=== PATIENT | male | born 1995 | race Hispanic/Latino ===

== ENCOUNTER 2020-04-27 21:51 | Inpatient (IN) | payer MEDICAID, OTHER ==
[~2020-04-27] VITALS: Ht 167.6 cm; Wt 109.5 kg
[2020-04-27 22:33] LABS: BASOPHILS % (AUTO) 0.5 % (0.0-5.0); EOSINOPHILS % (AUTO) 2.4 % (0.0-8.0); HEMATOCRIT 43.8 % (42-54); LYMPHOCYTES % (AUTO) 34.3 % (21.0-51.0); MEAN CORPUSCULAR HEMOGLOBIN 37.7 pg (27.0-33.0); MEAN CORPUSCULAR HGB CONC 45.7 g/dL (32.0-36.0); MEAN CORPUSCULAR VOLUME 82.6 fL (79-99); MONOCYTES % (AUTO) 6.5 % (3.0-13.0); NEUTROPHILS % (AUTO) 55.9 % (40.0-77.0); PLATELET COUNT (AUTO) 299 K/uL (130-400); WHITE BLOOD COUNT (AUTO) 11.5 K/uL (4.8-10.8)
[2020-04-27] MEDS ORDERED: KETOROLAC TROMETHAMINE 30MG/ML ONE (22:46)
[2020-04-27 23:06] LABS: APPEARANCE,URINE Clear (CLEAR); BILIRUBIN,URINE Negative (NEGATIVE); COLOR,URINE Yellow (YELLOW); GLUCOSE, URINE (UA) >=1000 mg/dL (NEGATIVE); KETONES,URINE Trace mg/dL (NEGATIVE); LEUKOCYTE ESTERASE ,URINE Negative (NEGATIVE); NITRATE,URINE Negative (NEGATIVE); OCCULT BLOOD,URINE Negative (NEGATIVE); PH,URINE 5.5 (5.0-8.0); PROTEIN,URINE POS 1+ mg/dL (NEGATIVE)
[2020-04-27 23:09] LABS: POTASSIUM 3.8 mmol/L (3.5-5.1)
[2020-04-27 23:11] LABS: BILIRUBIN,TOTAL 0.5 mg/dL (0.2-1.0); CREATININE 0.7 mg/dL (0.5-1.5)
[2020-04-27 23:12] LABS: TOTAL PROTEIN, SERUM 6.2 g/dL (6.0-8.3)
[2020-04-27 23:25] LABS: BACTERIA,URINE None Seen /HPF (None Seen); RBC,URINE None Seen /HPF (0-1); SQUAMOUS EPITHELIAL CELL,UR Rare /HPF (0-2); WBC,URINE None Seen /HPF (0-1); YEAST,URINE BUDDING None Seen /HPF (None Seen)
[2020-04-27] MEDS: SODIUM CHLORIDE 0.9% 1000ML 1,000 ML IV SCH (23:56)
[2020-04-28] MEDS ORDERED: ONDANSETRON HCL 4 MG/2 ML VIAL IV PRN
[2020-04-28] MEDS ORDERED: ACETAMINOPHEN 325 MG TAB PO PRN ×2
[2020-04-28] MEDS ORDERED: HYDRALAZINE HCL 20 MG/ML VIAL IV PRN
[2020-04-28] MEDS ORDERED: LACTULOSE 20 GM/30 ML UDCUP PO PRN
[2020-04-28 00:24] LABS: AMPHET/METH SCREEN,URINE NEGATIVE (NEGATIVE); BARBITURATE SCREEN, URINE NEGATIVE (NEGATIVE); BENZODIAZEPINES SCREEN,URINE NEGATIVE (NEGATIVE); CANNABINOID SCREEN,URINE NEGATIVE (NEGATIVE); COCAINE SCREEN,URINE NEGATIVE (NEGATIVE); OPIATE SCREEN,URINE NEGATIVE (NEGATIVE); PHENCYCLIDINE SCREEN,URINE NEGATIVE (NEGATIVE)
[2020-04-28 00:28] LABS: CHOLESTEROL > 600 mg/dL (<200); HDL CHOLESTEROL 43 mg/dL (29-71); TRIGLYCERIDES 8909 mg/dL (30-200)
[2020-04-28 00:53] LABS: LDL DIRECT 74 mg/dL (0-99)
[2020-04-28 03:46] VITALS: BP 143/79
[2020-04-28] MEDS: MORPHINE SULFATE 2 MG/ML 1ML SYG IV PRN ×2 (04:00→09:37)
[2020-04-28 05:52] LABS: BASOPHILS % (AUTO) 0.5 % (0.0-5.0); EOSINOPHILS % (AUTO) 2.4 % (0.0-8.0); HEMATOCRIT 40.9 % (42-54); LYMPHOCYTES % (AUTO) 27.5 % (21.0-51.0); MEAN CORPUSCULAR HEMOGLOBIN 35.6 pg (27.0-33.0); MEAN CORPUSCULAR VOLUME 82.6 fL (79-99); MONOCYTES % (AUTO) 10.1 % (3.0-13.0); NEUTROPHILS % (AUTO) 59.2 % (40.0-77.0); PLATELET COUNT (AUTO) 278 K/uL (130-400); RED BLOOD CELL COUNT(AUTO) 4.95 MIL/uL (4.50-6.20); RED CELL DISTRIBUTION WIDTH 14.2 % (11.0-15.5); WHITE BLOOD COUNT (AUTO) 10.1 K/uL (4.8-10.8)
[2020-04-28] MEDS: INSULIN HUMULIN R 100 UNIT/ML 3ML SQ SCH ×2 (05:57)
[2020-04-28 06:29] LABS: POTASSIUM 3.2 mmol/L (3.5-5.1)
[2020-04-28 06:53] LABS: CREATININE 0.8 mg/dL (0.5-1.5)
[2020-04-28 08:00] VITALS: BP 154/86
[2020-04-28] MEDS: SODIUM CHLORIDE 0.9% 1000ML 1,000 ML IV SCH (08:04)
[2020-04-28] MEDS ORDERED: ENOXAPARIN SODIUM 40 MG/0.4 ML SYRINGE SQ SCH (09:00)
[2020-04-28] MEDS ORDERED: FAMOTIDINE/PF 20 MG/2 ML VIAL IV SCH (09:00)
[2020-04-28] MEDS ORDERED: INSULIN REGULAR, HUMAN 3ML 100 UNIT in SODIUM CHLORIDE 0.9% 99 ML IV PRN ×2 (09:30)
[2020-04-28] MEDS ORDERED: DEXTROSE 5%-LACTATED RINGERS 1,000 ML IV SCH (09:30)
--- NOTE | 2020-04-28 10:05 | NUR ---
AMA PATIENT IS WORRIED ABOUT STAYING IN THE HOSPITAL. HE WANTS TO GO TO [facility] BECAUSE HIS FAMILY IS IN [place]. HE WAS ONLY VISITING [place]RIEND IN [place] WHEN HE FELT A SHARP PAIN IN HIS ABDOMEN AND HE DECIDED TO COME TO THE HOSPITAL. DR CLAUDIA PINO EXPLAINED TO THE PATIENT THAT HE NEEDS AN INSULIN DRIP BECAUSE HIS TRIGLYCERIDES ARE ALMOST 9000 AND HIS GLUCOSE IS ABOVE 400. PATIENT VERBALIZED UNDERSTANDING, I PERSONALLY EXPLAINED TO THE PATIENT THE RISKS AND CONSEQUENCES INVOLVED IN LEAVING THE HOSPITAL AT THIS TIME, THE BENEFITS OF CONTINUED TREATMENT AND HOSPITALIZATION. PATIENT VERBALIZED UNDERSTANDING OF ALL EDUCATION GIVEN VIA TEACH BACK. HE UNDERSTANDS THAT HE MAY IF HE LEAVES THE HOSPITAL. HE CALLED HIS MOTHER TO COME AND PICK HIM UP. AMA FORM SIGNED, PLACES IN THE CHART. SECURITY AWARE. IV DISCONTINUED, CATHETER INTACT.
--- NOTE | 2020-04-28 13:00 | NUR ---
CM ASSESSMENT-- DEFERRED.-- Addendum: 04/28/20 at 1302 by ANICETO GOMES RN CM Amended: Links added.
[2020-04-28] MEDS ORDERED: FENOFIBRATE NANOCRYSTALLIZED 48 MG TAB PO SCH (21:00)
== END 2020-04-28 10:35 | disposition left against medical advice (07) | DRG 440 ==
LOC: EDH 21:51 → EDHIP 21:52 → 3BH 04-28 02:34 → UNDODISIN 04-28 10:35
PROVIDERS: ADMIT Internal Medicine; ATTEND Internal Medicine
DX: K85.90 Acute pancreatitis without necrosis or infection, unspecified (principal); E78.00 Pure hypercholesterolemia, unspecified; K86.1 Other chronic pancreatitis; E78.1 Pure hyperglyceridemia; I10 Essential (primary) hypertension; Z87.891 Personal history of nicotine dependence; R73.9 Hyperglycemia, unspecified
CPT/HCPCS: 36415; 74176; 80048; 80053; 80061; 80305; 81001; 82150; 82330; 82948; 83036; 83690; 85025; G0378; G0480; J1650; J1815; J1885; J3490; J7030

== ENCOUNTER 2022-11-20 02:18 | Emergency (ER) | payer MEDICAID, OTHER ==
[~2022-11-20] VITALS: Ht 167.6 cm; Wt 103.4 kg
[2022-11-21] MEDS ORDERED: METF-444 PO (03:33)
[2022-11-21] MEDS ORDERED: FISH1CAP27 PO (03:33)
[2022-11-21] MEDS ORDERED: METO25TA6 PO (03:33)
[2022-11-25] MEDS ORDERED: PIOG30TA10 PO (13:51)
[2022-11-25] MEDS ORDERED: METF-444 PO (13:51)
[2022-11-25] MEDS ORDERED: ATOR40TA69 PO (13:51)
[2022-11-25] MEDS ORDERED: GLIM4TAB36 PO (13:51)
[2022-11-25] MEDS ORDERED: LOSA50TA2 PO (13:51)
[2022-11-25] MEDS ORDERED: METO50 PO (13:51)
[2022-11-25] MEDS ORDERED: FISH1CAP27 PO (13:51)
[2022-11-25] MEDS ORDERED: FENO145T PO (13:51)
== END 2022-11-20 05:40 | disposition left against medical advice (07) ==
LOC: EDH 02:18
DX: R10.9 Unspecified abdominal pain (principal); R11.0 Nausea; Z53.21 Procedure and treatment not carried out due to patient leaving prior to being seen by health care provider

== ENCOUNTER 2023-01-22 20:25 | Emergency (ER) | payer OTHER ==
[~2023-01-22] VITALS: Ht 167.6 cm; Wt 104.3 kg
[~2023-01-22 20:25] MED LIST: ATOR40TA69 PO; FENO145T PO; FISH1CAP27 PO; GLIM4TAB36 PO; LOSA50TA2 PO; METF-444 PO; METO50 PO; PIOG30TA10 PO
[2023-01-22] MEDS ORDERED: ERYT1OIN7 OP (20:52)
[2023-01-22] MEDS ORDERED: CEPH500B PO (20:52)
[2023-01-22 20:58] VITALS: BP 135/80
== END 2023-01-22 21:17 | disposition home or self-care (01) ==
LOC: EDH 20:25
DX: H01.004 Unspecified blepharitis left upper eyelid (principal); I10 Essential (primary) hypertension; F17.200 Nicotine dependence, unspecified, uncomplicated; Z79.899 Other long term (current) drug therapy; Z79.84 Long term (current) use of oral hypoglycemic drugs

== ENCOUNTER 2024-11-20 23:06 | Emergency (ER) | payer OTHER ==
[~2024-11-20] VITALS: Ht 167.6 cm; Wt 98.4 kg
[~2024-11-20 23:06] MED LIST changes: +ERYT1OIN7 OP; -FISH1CAP27 PO; -GLIM4TAB36 PO; +LOSA-418 PO; -LOSA50TA2 PO; -METF-444 PO; +NPH,100V11 SQ; -PIOG30TA10 PO; +[UNRECOGNIZED DRUG - CODE] MC; +[UNRECOGNIZED DRUG - CODE] MC
[2024-11-21] MEDS ORDERED: CEPH500B PO (00:28)
--- NOTE | 2024-11-21 00:29 | ERN ---
General Chief Complaint: Abscess Stated Complaint: C/O ABSCESS TO GROIN AREA Time Seen by MD: 23:10 Source: patient History of Present Illness Initial Comments PATIENT IS A 29-YEAR-OLD MALE COMING IN TO BE EVALUATED FOR IRRITATION AND TENDERNESS UNDER THE SUPRAPUBIC REGION. HE STATES THAT HE NOTICED A LITTLE BLISTER IN HIS VERY PAINFUL TO TOUCH. NO FEVER OR CHILLS NO NAUSEA NO VOMITING. PATIENT STATES THAT THE LESION BEGAN THREE DAYS AGO. Allergies: Coded Allergies: No Known Allergies (Verified Allergy, Unknown, 04/27/20) Home Meds Active Scripts Blood-Glucose Meter (NeoGuide Systemsuch Glucose Monitoring) 1 Each Kit, EACH for sugar checks, #1 Prov:JAVAD CORNELIUS MD 11/03/23 Syringe and Needle,Insulin,1Ml (Global Sugar Arttouch Insulin Syringe) 28 Gauge X 5/16" Disp.syrin, EACH MC for diabetes, #100 3 Refills Prov:JAAVD CORNELIUS MD 11/03/23 NPH, Human Insulin Isophane (Novolin N) 100 Unit/Ml Vial, 30 UNIT SQ PM for 30 Days, #10 VIAL 3 Refills Prov:JAVAD CORNELIUS MD 11/03/23 NPH, Human Insulin Isophane (Novolin N) 100 Unit/Ml Vial, 50 UNIT SQ AM for 30 Days, #15 VIAL 3 Refills Prov:JAVAD CORNELIUS MD 11/03/23 Metoprolol Tartrate (Lopressor 50Mg Tab) 50 Mg Tab, 50 MG PO BID for HYPERTENSION for 90 Days, #180 TAB 3 Refills Prov:JAVAD CORNELIUS MD 11/03/23 Losartan Potassium (Cozaar) 50 Mg Tablet, 50 MG PO DAILY for HYPERTENSION for 90 Days, #90 TAB 3 Refills Prov:JAVAD CORNELIUS MD 11/03/23 Fenofibrate Nanocrystallized (Tricor) 145 Mg Tablet, 145 MG PO DAILY for HYPERTRIGLYCERIDEMIA for 90 Days, #90 TAB 3 Refills Prov:JAVAD CORNELIUS MD 11/03/23 Atorvastatin Calcium (LIPITOR) 40 Mg Tablet, 40 MG PO HS for DYSLIPIDEMIA for 90 Days, #90 TAB 3 Refills Prov:JAVAD CORNELIUS MD 11/03/23 Erythromycin Base (Erythromycin) 1 Gm Oint...g., 1 GM OP 6 times/day for 7 Days, #30 GM Prov:SHEREEN LOPEZ SUPERVISOR MOLD CONSTRUCTION 01/22/23 Past Medical History Past Medical History: Diabetes-Type II, Hypertension Past Surgical History: None Social History Social History: Smokers, ETOH ROS Dictation CONSTITUTIONAL: NO CHILLS, NO FEVER, NO WEAKNESS, NO DIAPHORESIS, NO MALAISE. HEAD/FACE: NO SIGNS OF TRAUMA. EENT: NO EYE PAIN, NO BLURRED VISION, NO TEARING, NO DOUBLE VISION, NO EAR PAIN, NO EAR DISCHARGE, NO NOSE PAIN, NO NASAL CONGESTION, NO THROAT PAIN, NO THROAT SWELLING, NO MOUTH PAIN. RESPIRATORY: NO COUGH, NO ORTHOPNEA, NO SOB, NO STRIDOR, NO WHEEZING. CARDIOVASCULAR: NO CHEST PAIN, NO EDEMA, NO PALPITATIONS, NO SYNCOPE. GASTROINTESTINAL/ABDOMINAL: NO ABDOMINAL PAIN, NO CONSTIPATION, NO DIARRHEA, NO NAUSEA, NO VOMITING. GENITOURINARY: NO ABNORMAL DISCHARGE, NO DYSURIA, NO FREQUENT URINATION, NO HEMATURIA. NO COMPLAINTS OF PAIN IN THE GENITALS. MUSCULOSKELETAL: NO BACK PAIN, NO GOUT, NO JOINT PAIN, NO JOINT SWELLING, NO MUSCLE PAIN, NO MUSCLE STIFFNESS, NO NECK PAIN. INTEGUMENTARY: NO CHANGE IN COLOR, NO CHANGE IN HAIR/NAILS, NO DRYNESS, NO LESION, NO LUMPS, RASH. NEUROLOGICAL/PSYCH: NO ANXIETY, NOT DEPRESSED, NO EMOTIONAL PROBLEM, NO HEAD ACHE, NO NUMBNESS, NO PRE-EXISTING DEFICIT, NO HISTORY OF SEIZURES, NO TREMORS, NO WEAKNESS. HEMATOLOGIC/LYMPHATIC: NOT ANEMIC, NO HISTORY OF BLOOD CLOTS, NO APPARENT BLEEDING, NO BRUISING, GLANDS NOT SWOLLEN. ALL SYSTEMS NEGATIVE, EXCEPT NOTED. Physical Exam Physical Exam Dictation VITAL SIGNS: REVIEWED. GENERAL APPEARANCE: ALERT, ORIENTED X3, NO ACUTE DISTRESS, OBESE. HEAD AND FACE: NON-TRAUMATIC. EYES: PERRL, PINK CONJUNCTIVAS, EYELID NO TRAUMA, ANTERIOR CHAMBER CLEAR. EARS: PINNAS INTACT AND NO SIGNS OF TRAUMA OR ERYTHEMA. EAR CANALS CLEAR AND NO DISCHARGE. TMS NO ERYTHEMA. NOSE: NO DISCHARGE, NO BLEEDING. OROPHARYNX: MOUTH NORMAL, TEETH NO CARIES, TONGUE PINK. PHARYNX CLEAR, NO ERYTHEMA. TONSILS NO EXUDATES, NO ABSCESSES NOTED. MUCOUS MEMBRANE MOIST. NECK: SUPPLE, NON-TENDER, NO THYROMEGALY, NO MASSES, NO JVD, NO BRUITS. BREAST: DEFERRED. CHEST: NO TENDERNESS, NO CREPITUS, NO PARADOXICAL MOVEMENT, NO RETRACTIONS. LUNGS: CLEAR, WELL-VENTILATED, SYMMETRIC, NO RALES, NO WHEEZING, NO RHONCHI, NO STRIDOR, GOOD BREATH SOUNDS BILATERALLY. HEART: REGULAR RATE, REGULAR RHYTHM, NO MURMUR, NO GALLOPS. VASCULAR: NO PERIPHERAL EDEMA. ABDOMEN: SOFT, POSITIVE BOWEL SOUNDS, NONDISTENDED, NO GUARDING, NONTENDER, NO REBOUND, NO MASSES NO HEPATOMEGALY, NO SPLENOMEGALY, NO MATHEW'S SIGN, NO HERNIAS. RECTAL: DEFERRED. GENITAL: DEFERRED. NEUROLOGICAL: NORMAL SPEECH, GROSS MOTOR FUNCTION INTACT, GROSS SENSORY FUNCTION INTACT. MUSCULOSKELETAL: NECK NONTENDER, FULL RANGE OF MOTION, BACK NONTENDER, FULL RANGE OF MOTION. EXTREMITIES: NONTENDER, FULL RANGE OF MOTION. SKIN: COLOR PINK, DRY, NO TURGOR, RIGHT SUPRAPUBIC FOLLICULITIS, NO LACERATIONS, NO ABRASIONS, NO CONTUSIONS. LYMPHATICS: DEFERRED. Results Laboratory and Microbiology Labs Reviewed?: Yes MDM MDM: DIFFERENTIAL DIAGNOSIS: FOLLICULITIS, SIMPLE ABSCESS, PATIENT IS A 28-YEAR-OLD MALE COMING IN TO BE EVALUATED FOR SUPRAPUBIC TENDERNESS AND STATES THAT HE HAS NOTICED A PIMPLE THREE DAYS AGO. ON PHYSICAL EXAM NO FLUCTUANCE NOTED, FOLLICULITIS NOTED. PATIENT WILL BE DISCHARGED WITH A DIAGNOSIS OF SUPRAPUBIC FOLLICULITIS. ANTIBIOTICS WILL BE PROVIDED SINCE THE PATIENT IS A DIABETIC. I ADVISED HIM CLOSE FOLLOW UP WITH PCP IN ORDER TO MAKE SURE THAT LESIONS HEAL PROPERLY. ED Course Orders Procedure Category Date Status Time Ceftriaxone 1g Vial PHA 11/21/24 Transmitted (Rocephine 1g Inj) 00:30 Vital Signs Date Time Temp Pulse Resp B/P (MAP) Pulse Ox O2 Delivery O2 Flow Rate FiO2 11/20/24 23:08 98.2 84 20 147/90 98 Room Air DX & DISP Disposition: Discharge Departure Impression: Primary Impression: Folliculitis Condition: Stable Scripts Cephalexin Monohydrate (Keflex) 500 Mg Cap 1 CAP PO TID for 10 Days, #30 CAP 0 Refills Prov: VANE HERNANDEZ MD 11/21/24 Additional Instructions: FOLLOW-UP WITH PRIMARY CARE PROVIDER IN 1 TO 2 DAYS. TAKE MEDICATIONS DIRECTED HERE IN THE EMERGENCY ROOM. OKAY TO CONTINUE HOME MEDICATIONS UNLESS OTHERWISE DISCUSSED DURING YOUR VISIT IN THE EMERGENCY ROOM TODAY. RETURN TO YOUR NEAREST EMERGENCY ROOM IF SYMPTOMS WORSEN OR IF THERE IS NO IMPROVEMENT. CALL 911 IF YOU NEED IMMEDIATE ASSISTANCE. TAKE TYLENOL AUGY-EJD-EVQTCSR NEEDED AND IF NO CONTRAINDICATIONS ARE PRESENT. INCREASE ORAL HYDRATION. A WOUND CULTURE OR URINE CULTURE WAS ORDERED HERE IN THE EMERGENCY ROOM DEPARTMENT PLEASE FOLLOW-UP WITH PRIMARY CARE PROVIDER AND ADVISE THEM TO GET REPEAT PORTS FROM OUR FACILITY. IF YOU HAD ANY TIEN WRAP/SPLINTS THAT WERE APPLIED HERE, PLEASE DO NOT REMOVE THEM UNTIL YOU SEE YOUR PRIMARY CARE OR SPECIALTY. REFERRALS: Referrals: SELF,REFERRAL (PCP) SHANE BOSE MD Time of Disposition: 00:28 VANE HERNANDEZ MD Nov 21, 2024 00:29
[2024-11-21] MEDS: cefTRIAXone 1G VIAL IM ONE (01:45)
[2024-11-21 01:55] VITALS: BP 142/88; PULSE 82; RESP 16; TEMP 98.2; O2SAT 99
== END 2024-11-21 02:06 | disposition home or self-care (01) ==
LOC: EDH 23:06
DX: L73.9 Follicular disorder, unspecified (principal); E11.9 Type 2 diabetes mellitus without complications; F17.200 Nicotine dependence, unspecified, uncomplicated; I10 Essential (primary) hypertension; Z79.899 Other long term (current) drug therapy
CPT/HCPCS: 99283; 96372; J0696

== ENCOUNTER 2025-08-08 08:30 | Emergency (ER) | payer OTHER ==
[~2025-08-08] VITALS: Ht 167.6 cm; Wt 97.1 kg
[~2025-08-08 08:30] MED LIST changes: +CEPH500B PO
[2025-08-08 09:06] LABS: AMPHET/METH SCREEN,URINE NEGATIVE (NEGATIVE); BARBITURATE SCREEN, URINE NEGATIVE (NEGATIVE); CANNABINOID SCREEN,URINE NEGATIVE (NEGATIVE); COCAINE SCREEN,URINE NEGATIVE (NEGATIVE); GLUCOSE,RANDOM 311.0 mg/dL (70-105); IMMATURE GRANULOCYTE ABSOLUTE 0.04 K/uL (0-1); NUCLEATED RED BLOOD CELLS 0.0 % (0.0-0.19); PLATELET COUNT (AUTO) 291 K/uL (130-400); RED BLOOD CELL COUNT(AUTO) 5.54 MIL/uL (4.50-6.20); RED CELL DISTRIBUTION WIDTH 13.6 % (11.0-15.5); SODIUM SERUM 129.0 mmol/L (136-145); UREA NITROGEN, BLOOD 13.0 mg/dL (7-18); WHITE BLOOD COUNT (AUTO) 10.1 K/uL (4.8-10.8)
[2025-08-08 09:12] LABS: CREATINE KINASE, TOTAL 214.0 U/L (21-232)
--- NOTE | 2025-08-08 09:15 | ERN ---
ED Note History of Present Illness Stated Complaint: LEFT FLANK PAIN Chief Complaint: Flank Pain Time Seen by MD: 08:40 Dictation: 30-year-old male presenting to the emergency department with left-sided flank pain since last night 06/29 radiating down towards lower abdomen and nausea. No chest pain or shortness a breath. Allergies: Coded Allergies: No Known Allergies (Verified Allergy, Unknown, 04/27/20) Home Meds Active Scripts Cephalexin Monohydrate (Keflex) 500 Mg Cap, 1 CAP PO TID for 10 Days, #30 CAP 0 Refills Prov:VANE HERNANDEZ MD 11/21/24 Blood-Glucose Meter ([employer] Glucose Monitoring) 1 Each Kit, EACH MC for sugar checks, #1 Prov:JAVAD CORNELIUS MD 11/03/23 Syringe and Needle,Insulin,1Ml (Vobitouch Insulin Syringe) 28 Gauge X 5/16" Disp.syrin, EACH MC for diabetes, #100 3 Refills Prov:JAVAD CORNELIUS MD 11/03/23 NPH, Human Insulin Isophane (Novolin N) 100 Unit/Ml Vial, 30 UNIT SQ PM for 30 Days, #10 VIAL 3 Refills Prov:JAVAD CORNELIUS MD 11/03/23 NPH, Human Insulin Isophane (Novolin N) 100 Unit/Ml Vial, 50 UNIT SQ AM for 30 Days, #15 VIAL 3 Refills Prov:JAVAD CORNELIUS MD 11/03/23 Metoprolol Tartrate (Lopressor 50Mg Tab) 50 Mg Tab, 50 MG PO BID for HYPERTENSION for 90 Days, #180 TAB 3 Refills Prov:JAVAD CORNELIUS MD 11/03/23 Losartan Potassium (Cozaar) 50 Mg Tablet, 50 MG PO DAILY for HYPERTENSION for 90 Days, #90 TAB 3 Refills Prov:JAVAD CORNELIUS MD 11/03/23 Fenofibrate Nanocrystallized (Tricor) 145 Mg Tablet, 145 MG PO DAILY for HYPERTRIGLYCERIDEMIA for 90 Days, #90 TAB 3 Refills Prov:JAVAD CORNELIUS MD 11/03/23 Atorvastatin Calcium (LIPITOR) 40 Mg Tablet, 40 MG PO HS for DYSLIPIDEMIA for 90 Days, #90 TAB 3 Refills Prov:JAVAD CORNELIUS MD 11/03/23 Erythromycin Base (Erythromycin) 1 Gm Oint...g., 1 GM OP 6 times/day for 7 Days, #30 GM Prov:SHEREEN LOPEZ TRANSPORTATION DRIVER 01/22/23 Past Medical History Past Medical History: Diabetes-Type II, Hypertension Additional Past Medical Hx: NON COMPLIANT Surgical History: None Social History: Smokers, ETOH Review of System Dictation Constitutional: Negative for fever,chills, and weight loss Eyes: Negative for injury, pain,redness, and discharge ENT: Negative for injury,pain or swelling Cardiovascular: Negative for chest pain, palpitations, and edema Respiratory: Negative for shortness of breath, cough, and wheezing, Abdomen/GI: Per HPI : Negative for injury, bleeding and discharge MS/Extremity: Negative for injury and deformity Skin: Negative for rash, and discoloration Neuro: Negative for headache, weakness, numbness, tingling, and seizure Psych: Negative for suicide ideation, homicidal ideation, and hallucinations Initial Vital Sign VS Vital Signs Date Time Temp Pulse Resp B/P (MAP) Pulse Ox O2 Delivery O2 Flow Rate FiO2 08/08/25 08:31 97.9 102 20 184/98 97 Room Air 0 08/08/25 08:44 21 Physical Exam Dictation General: awake, alert, NAD Head/Face: Normocephalic, atraumatic Eyes: PERRL, EOMI, vision at baseline ENT: oral cavity clear, TMs clear, no signs of infection Neck: Trachea midline, supple, no nuchal rigidity Cardiovascular: RRR, normal S1/S2, No MRGs, no JVD Respiratory: CTAB, no respiratory distress, No rales or wheezes Abdomen: Soft, non-tender, non-distended, normal bowel sounds, no guarding or rebound left CVA tenderness to palpation. Skin: Warm, dry, normal turgor, no rash MS/Extremity: Pulses equal, no cyanosis, neurovascular intact, FROM Neuro: COAx4, GCS 15, strength 5/5, CN 2-12 intact, normal cerebellar exam, normal gait, Psych: Normal behavior, mood, and affect normal Results (Laboratory/Radiology) Laboratory/Radiology Laboratory Tests Test 08/08/25 08:51 White Blood Count 10.1 K/uL (4.8-10.8) Red Blood Count 5.54 MIL/uL (4.50-6.20) Hemoglobin 16.9 g/dL (14.0-18.0) Hematocrit 45.6 % (42-54) Mean Corpuscular Volume 82.3 fL (79-99) Mean Corpuscular Hemoglobin 30.5 pg (27.0-33.0) Mean Corpuscular Hemoglobin Concent 37.1 g/dL (32.0-36.0) H Red Cell Distribution Width 13.6 % (11.0-15.5) Platelet Count 291 K/uL (130-400) Mean Platelet Volume 9.3 fL (7.5-10.5) Immature Granulocyte % (Auto) 0.4 % (0-1) Neutrophils (%) (Auto) 66.4 % (40.0-77.0) Lymphocytes (%) (Auto) 25.8 % (21.0-51.0) Monocytes (%) (Auto) 4.8 % (3.0-13.0) Eosinophils (%) (Auto) 2.0 % (0.0-8.0) Basophils (%) (Auto) 0.6 % (0.0-5.0) Neutrophils # (Auto) 6.7 K/uL (1.8-7.7) Lymphocytes # (Auto) 2.6 K/uL (1.0-4.8) Monocytes # (Auto) 0.5 K/uL (0.1-1.0) Eosinophils # (Auto) 0.20 K/uL (0.00-0.70) Basophils # (Auto) 0.06 K/uL (0.00-0.20) Absolute Immature Granulocyte (auto 0.04 K/uL (0-1) Nucleated Red Blood Cells 0.0 % (0.0-0.19) Red Blood Cell Morphology See comments Urine Color LIGHT-YELLOW (YELLOW) Urine Appearance CLEAR (CLEAR) Urine pH 5.5 (5.0-8.0) Urine Specific [place] 1.039 (1.001-1.031) Urine Protein 30 mg/dL (NEGATIVE) H Urine Glucose (UA) >=1000 mg/dL (NEGATIVE) H Urine Ketones 10 mg/dL (NEGATIVE) H Urine Occult Blood NEGATIVE (NEGATIVE) Urine Nitrate NEGATIVE (NEGATIVE) Urine Bilirubin NEGATIVE mg/dL (NEGATIVE) Urine Urobilinogen 0.2 mg/dL (0.2-1.0) Urine Leukocyte Esterase 500 Naa/uL (NEGATIVE) H Urine RBC 2-5 /HPF (0-1) H Urine WBC 6-10 /HPF (0-1) H Urine Squamous Epithelial Cells RARE /HPF (0-2) Urine Bacteria None /HPF (None Seen) Sodium Level 129 mmol/L (136-145) L Potassium Level 4.2 mmol/L (3.5-5.1) Chloride Level 93 mmol/L (101-111) L Carbon Dioxide Level 26 mmol/L (21-32) Blood Urea Nitrogen 13 mg/dL (7-18) Creatinine 0.6 mg/dL (0.5-1.3) Glomerular Filtration Rate Calc 133 mL/min (>90) Random Glucose 311 mg/dL (70-105) H Total Calcium 8.8 mg/dL (8.5-10.1) Total Bilirubin 2.8 mg/dL (0.2-1.0) H Direct Bilirubin 0.1 mg/dL (0.0-0.3) Aspartate Amino Transf (AST/SGOT) 67 U/L (10-37) H Alanine Aminotransferase (ALT/SGPT) 64 U/L (12-78) Alkaline Phosphatase 95 U/L (50-136) Total Creatine Kinase 214 U/L (21-232) Total Protein 7.8 g/dL (6.0-8.3) Albumin 3.5 g/dL (3.5-5.0) Urine Opiates Screen NEGATIVE (NEGATIVE) Urine Barbiturates Screen NEGATIVE (NEGATIVE) Urine Phencyclidine Screen NEGATIVE (NEGATIVE) Urine Amphetamines Screen NEGATIVE (NEGATIVE) Urine Benzodiazepines Screen NEGATIVE (NEGATIVE) Urine Cocaine Screen NEGATIVE (NEGATIVE) Urine Marijuana (THC) Screen NEGATIVE (NEGATIVE) Labs Reviewed?: Yes ED Course ED Course Orders Procedure Category Date Status Time Basic Metabolic Panel LAB 08/08/25 Complete 08:46 Cbc With Differential LAB 08/08/25 Complete 08:46 Drug Screen Urine LAB 08/08/25 Complete 08:46 Creatine Kinase, Total LAB 08/08/25 Complete 08:46 Hepatic Function Panel LAB 08/08/25 Complete 08:46 Urinalysis Profile LAB 08/08/25 Complete 08:46 Ct Abd/Pel Wo Con CT 08/08/25 Resulted Renal/Appy 08:46 Ketorolac PHA 08/08/25 Complete Tromethamine 15mg/Ml 09:00 Ondansetron 4mg Inj PHA 08/08/25 Complete (Zofran 4mg Inj) 09:00 Hydralazine 20mg Inj PHA 08/08/25 Complete (Apresoline 20mg In 09:00 Culture Urine FABIANA 08/08/25 Logged 09:21 0.9%Nacl 1000ml (Ns PHA 08/08/25 Complete 1000ml) 10:30 Current Medications Medications (Trade) Dose Ordered Sig/Gonzales Route PRN Reason Start Time Stop Time Status Last Admin Dose Admin Hydralazine HCl (APRESOLine 20MG INJ) 10 mg ONCE ONCE IV 08/08/25 09:00 08/08/25 09:01 DC Ketorolac Tromethamine (toRADol) 15 mg ONCE ONCE IV 08/08/25 09:00 08/08/25 09:01 DC 08/08/25 08:56 Ondansetron HCl (zoFRAN 4MG INJ) 4 mg ONCE ONCE IVP 08/08/25 09:00 08/08/25 09:01 DC 08/08/25 08:55 Sodium Chloride 1,000 ml @ 0 mls/hr ONCE ONCE IV 08/08/25 10:30 08/08/25 10:31 DC 08/08/25 10:29 Vital Signs Date Time Temp Pulse Resp B/P (MAP) Pulse Ox O2 Delivery O2 Flow Rate FiO2 08/08/25 09:46 98.1 95 17 137/80 98 Room Air* 0 21 08/08/25 08:44 98.1 99 20 172/89 97 Room Air* 0 21 08/08/25 08:31 97.9 102 20 184/98 97 Room Air 0 Medical Decision Making MDM MDM: Differential diagnosis: Rationale: Tests considered and ordered secondary to shared decision making include: Previous outside records reviewed: Old ER visits. Risk of complication and/or morbidity or mortality of patient management: None Medications-Per medication reconciliation Need for hospitalization: Patient does not meet criteria for hospitalization. Need for emergency major/minor surgery: No There are no social concerns with this patient. Prescription drug management Prescriptions will include symptomatic care Patient's prior external medical records from other ER visits were reviewed by me as indicated. Prior testing and results from previous visits were reviewed. Prior tests were taken into account with medical decision making and resource utilization, independent historian/historians were used to obtain complete medical history. I independently interpreted the test that were performed, results were reviewed by me and considered findings on radiology if ordered. Medical management and examination interpretation discussions were had by me with other qualified healthcare professionals as indicated for the patient's care. 30-year-old male with left flank pain stable exam negative workup symptoms improved acute dehydration muscle strain. DX & DISP Disposition: Discharge Departure Impression: Primary Impression: Muscle spasm of back Additional Impression: Left flank pain Condition: Stable Scripts Naproxen (Naproxen) 250 Mg Tablet 250 MG PO BID for 5 Days, #10 TAB Prov: COCO EDWARD MD 08/08/25 Referrals: SELF,REFERRAL (PCP) COCO EDWARD MD Aug 08, 2025 09:15
[2025-08-08 09:17] LABS: APPEARANCE,URINE CLEAR (CLEAR); GLUCOSE, URINE (UA) >=1000 mg/dL (NEGATIVE); LEUKOCYTE ESTERASE ,URINE 500 Leu/uL (NEGATIVE); NITRATE,URINE NEGATIVE (NEGATIVE); OCCULT BLOOD,URINE NEGATIVE (NEGATIVE)
[2025-08-08 09:21] LABS: ADD UA MICROSCOPIC YES
[2025-08-08 09:23] LABS: SQUAMOUS EPITHELIAL CELL,UR RARE /HPF (0-2)
[2025-08-08 09:47] LABS: CREATININE 0.6 mg/dL (0.5-1.3); GLOMERULAR FILTR. RATE CALC 133.0 mL/min (>90); TOTAL PROTEIN, SERUM 7.8 g/dL (6.0-8.3)
--- NOTE | 2025-08-08 09:51 | NUR ---
HELD HYDRALAZINE DUE TO NEW BLOOD PRESSURE READING OF 137/80 PATIENT RESTING IN BED, CALL LIGHT IN REACH
--- NOTE | 2025-08-08 10:10 | HMCIMG ---
EXAM: CT Abdomen and Pelvis Without IV contrast CLINICAL HISTORY: left flank pain TECHNIQUE: Axial computed tomography images of the abdomen and pelvis without intravenous contrast. CONTRAST: No IV contrast. COMPARISON: 10/29/2023 FINDINGS: LUNG BASES: The lung bases appear clear. No pleural effusions are seen. LIVER: Unremarkable. GALLBLADDER AND BILE DUCTS: The gallbladder appears within normal limits. No radioopaque gallstones are seen. No biliary ductal dilatation is evident. PANCREAS: Unremarkable. SPLEEN: Unremarkable. ADRENAL GLANDS: Unremarkable. KIDNEYS, URETERS, AND BLADDER: The kidneys appear within normal limits. There is no hydronephrosis or hydroureter. No urinary calculi are seen. STOMACH AND BOWEL: Unremarkable appearance of the stomach and bowel. No evidence of bowel obstruction. No evidence suggesting enteritis or colitis. APPENDIX: Normal appendix. PERITONEUM: No free fluid. No free air. LYMPH NODES: No lymphadenopathy is evident. REPRODUCTIVE: Unremarkable as visualized. VASCULATURE: No evidence of abdominal aortic aneurysm. BONES: No aggressive appearing osseous lesion. No acute osseous pathology evident. IMPRESSION: No acute intra-abdominal or pelvic abnormality. /[place]
[2025-08-08 10:17] LABS: ASPARTATE AMINOTRANSFERASE 67.0 U/L (10-37)
[2025-08-08] MEDS: 0.9%NACL 1000ML 1,000 ML IV ONE (10:29)
[2025-08-08] MEDS ORDERED: NAPR-1196 PO (10:58)
[2025-08-08 11:49] VITALS: BP 144/82; PULSE 82; RESP 18; TEMP 98.2; O2SAT 98
--- NOTE | 2025-08-08 11:50 | NUR ---
DC PATIENT WAS DC'D BY DR EDWARD, I DC'D PATIENTS IV WITH CATH STILL INTACT AND APPLIED 2X2 GAUZE WITH COBAN I EXPLAINED TO PATIENT TO FOLLOW UP WITH PCP, PROVIDED INFO BASED ON DIAGNOSIS, PRESCRIPTIONS AND ANSWERED ANY FOLLOW UP QUESTIONS PATIENT AMBULATED OUT OF ED, NO COMPLICATIONS
== END 2025-08-08 11:48 | disposition home or self-care (01) ==
LOC: EDH 08:30
DX: R10.9 Unspecified abdominal pain (principal); M62.830 Muscle spasm of back; E11.9 Type 2 diabetes mellitus without complications; F17.200 Nicotine dependence, unspecified, uncomplicated; I10 Essential (primary) hypertension; Z79.899 Other long term (current) drug therapy
CPT/HCPCS: 99285; 74176; 96374; 96361; 96375; 82550; 80076; 80048; 80305; 85025; 87086; 36415; 81001; J1885; J7030; J2405; J0360